=== PATIENT | female | born 1975 | race Caucasian/White ===

== ENCOUNTER 2019-08-15 21:13 | Emergency (ER) | payer BC ==
[~2019-08-15] VITALS: Ht 172.7 cm; Wt 99.5 kg
[2019-08-15 21:26] VITALS: Ht 172.7 cm; Wt 99.5 kg
[2019-08-15] MEDS ORDERED: EFFEXOR100 MG PO (21:27)
[2019-08-15] MEDS ORDERED: MOBIC7.5 MG PO (21:27)
[2019-08-15] MEDS ORDERED: VITAMIN D10000 UNI1 PO (21:28)
[2019-08-15] MEDS ORDERED: CYCLOBENZAPRINE10 MG PO (21:28)
[2019-08-15] MEDS ORDERED: OMEPRAZOLE40 MG PO (21:28)
[2019-08-15 21:51] LABS: BASOPHILS 0.2 % (0-2); EOSINOPHILS 3.5 % (0-7); HEMATOCRIT 44.8 % (36.0-48.0); HEMOGLOBIN 14.7 g/dL (12-16); IMMATURE GRANULOCYTES 0.2 % (0-5); LYMPHOCYTES 24.3 % (15-50); MCH 29.3 pg (26.0-34.0); MCHC 32.8 g/dL (31.0-37.0); MCV 89.4 fL (80.0-100.0); MEAN PLATELET VOLUME 10.3 fL (7.4-10.4); MONOCYTES 7.2 % (2-11); NEUTROPHILS 64.6 % (40-80); RBC 5.01 10x6/uL (4.00-5.40); RDW 13.8 % (11.5-14.5); WBC 9.4 10x3/uL (4.8-10.8)
[2019-08-15 22:05] LABS: PLATELET COUNT 263 10x3/uL (130-400)
[2019-08-15 22:08] LABS: CALC OSMOLALITY 274 mosm/kg (275-300); CALCIUM 8.9 mg/dL (8.5-10.1); CARBON DIOXIDE 28.5 mmol/L (21.0-32.0); CHLORIDE - SERUM 99 mmol/L (98-107); CREATININE - SERUM 0.8 mg/dL (0.6-1.3); POTASSIUM - SERUM 3.8 mmol/L (3.5-5.1); SODIUM 135 mmol/L (136-145); UREA NITROGEN 10 mg/dL (7-18); eGFR NON AFRICAN AMERICAN 82 mL/min (90-120)
[2019-08-15 22:11] LABS: GLUCOSE 215 mg/dL (74-106)
[2019-08-15 22:13] LABS: ALBUMIN 3.8 g/dL (3.4-5.0); ALKALINE PHOSPHATASE 98 U/L (46-116); ALT (SGPT) 42 U/L (10-68); BILIRUBIN - TOTAL 0.48 mg/dL (0.2-1.3); PROTEIN - SERUM 8.3 g/dL (6.4-8.2)
[2019-08-15 22:19] LABS: APPEARANCE CLEAR (CLEAR); BILIRUBIN NEGATIVE (NEGATIVE); COLOR STRAW (YELLOW); GLUCOSE NEGATIVE (NEGATIVE); KETONE NEGATIVE (NEGATIVE); NITRITE NEGATIVE (NEGATIVE); PROTEIN NEGATIVE (NEGATIVE); UROBILINOGEN NORMAL (NORMAL)
[2019-08-15 22:21] LABS: BACTERIA FEW /hpf (NEGATIVE); EPITHELIAL CELLS 0-5 /hpf (0-5); RED CELLS - URINE 0-5 /hpf (0-5); WHITE CELLS - URINE 0-5 /hpf (NEGATIVE)
[2019-08-16] MEDS ORDERED: AUGMENTIN 875-11 TAB PO (00:50)
[2019-08-16] MEDS ORDERED: FLUTICASONE PRO16 GM NASAL (00:50)
[2019-08-16 01:46] VITALS: BP 132/89
== END 2019-08-16 01:49 | disposition home or self-care (01) ==
LOC: D.ER 21:13
PROVIDERS: Family Medicine
DX: J01.90 Acute sinusitis, unspecified (principal); G44.209 Tension-type headache, unspecified, not intractable; F17.200 Nicotine dependence, unspecified, uncomplicated